=== PATIENT | female | born 1945 | race African-American/Black ===

== ENCOUNTER → 2016-11-02 | Day surgery (SDC) | payer MEDICARE ==
[~2016-11-02] MED LIST: ATROPINE SULFATE 1% OPHT SOLN 2 ML BTL ONE; DEXAMETHASONE SOD PHOS 4 MG/ML VIAL ONE; EPINEPHrine HCL (1:1000) 1 MG/ML VIAL ONE; FLURBIPROFEN 0.03% OPHT SOLN 2.5 ML BTL ONE; HYALURONIDASE/LIDOCAINE/BUPIVACAINE 11 ML SYR TL ONE; HYDR-2768 PO; LACTATED RINGER'S 1000 ML INJ 1,000 ML ONE; NEOMYCIN/POLYMYXIN/DEXAMETHASONE OPTH OINT 3.5 GM TUBE ONE; PHENYLEPHRINE HCL 2.5 % OPTH SOLN 15 ML BTL ONE; PRED1%O OD; PROPOFOL 100 MG/10 ML INJ IV ONE; SODIUM CHLORIDE 0.9% INJ 10 ML ONE; TETRACAINE 0.5% OPTH SOLN 4 ML BTL ONE; TROPICAMIDE 1% OPHT SOLN 15 ML BTL ONE; ceFAZolin INJ 1,000 MG VIAL ONE
--- NOTE | 2016-11-06 10:25 | TN ---
cc: JULIO CESAR HOPSON MD DATE OF SURGERY: 11/02/2016 PREOPERATIVE DIAGNOSIS: Previous macular hole, right eye. POSTOPERATIVE DIAGNOSIS: Previous macular hole, right eye. OPERATION: Pars plana vitrectomy, silicone oil removal, right eye. ANESTHESIA: MAC. SURGEON: Dr. Hopson. COMPLICATIONS: None. PROCEDURE: After informed consent was obtained, the patient brought to the operating room, placed, under brief anesthesia of propofol, prepped and draped in the usual sterile fashion. A wire eyelid speculum was placed in the patient's right eye. 23 gauge vitrectomy cannulas were then placed, one lower temporal, supratemporal and supranasal quadrants 3 mm posterior to the corneal scleral limbus. Infusion cannula was placed lower temporally. The patient had a previous vitrectomy with some of the residual vitreous, at the vitreous space was excised using the vitreous cutter. Posteriorly either the internal limiting membrane or an epiretinal membrane was stained with ICG dye over the surface of the macula. This was then carefully peeled from around the macula hole. Careful indirect ophthalmoscopy with scleral depression was then performed. No peripheral breaks were noted. A complete air-fluid was then performed. The silicone oil gas then used to fill the vitreous cavity. The three vitrectomy cannulas were then removed. Each site was closed with interrupted 7-0 Vicryl suture. Subconjunctival injections of Dexamethasone and Ancef were placed. Atropine drops. Maxitrol ointment and patch and shield were then applied. The patient tolerated the procedure well. There were no complications. She will followup tomorrow in our [facility] office. Julio Cesar Hopson MD TAB/JAC /9:16 AM /10:19 AM
== END | disposition home or self-care (01) ==
LOC: ESDC 11:41
PROVIDERS: ATTEND Ophthalmology Retina Specialist
DX: H35.341 Macular cyst, hole, or pseudohole, right eye (principal)
CPT/HCPCS: 00145; 67036; J0171; J0690; J1100; J7120

== ENCOUNTER 2017-10-24 00:48 | Emergency (ER) | payer MEDICARE ==
[~2017-10-24] VITALS: Ht 172.7 cm; Wt 100.0 kg
[~2017-10-24 00:48] MED LIST changes: -ATROPINE SULFATE 1% OPHT SOLN 2 ML BTL ONE; -DEXAMETHASONE SOD PHOS 4 MG/ML VIAL ONE; -EPINEPHrine HCL (1:1000) 1 MG/ML VIAL ONE; -FLURBIPROFEN 0.03% OPHT SOLN 2.5 ML BTL ONE; -HYALURONIDASE/LIDOCAINE/BUPIVACAINE 11 ML SYR TL ONE; -LACTATED RINGER'S 1000 ML INJ 1,000 ML ONE; -NEOMYCIN/POLYMYXIN/DEXAMETHASONE OPTH OINT 3.5 GM TUBE ONE; -PHENYLEPHRINE HCL 2.5 % OPTH SOLN 15 ML BTL ONE; -PROPOFOL 100 MG/10 ML INJ IV ONE; -SODIUM CHLORIDE 0.9% INJ 10 ML ONE; -TETRACAINE 0.5% OPTH SOLN 4 ML BTL ONE; -TROPICAMIDE 1% OPHT SOLN 15 ML BTL ONE; -ceFAZolin INJ 1,000 MG VIAL ONE
[2017-10-24 00:50] VITALS: BP 177/84; PULSE 79; RESP 16; TEMP 98.5; O2SAT 99
[2017-10-24] MEDS ORDERED: HYDR25TA5 PO (01:08)
[2017-10-24] MEDS ORDERED: METO100T PO (01:08)
[2017-10-24] MEDS ORDERED: CALC600T PO (01:08)
--- NOTE | 2017-10-24 01:32 | PD ---
HPI Chief Complaint: Rectal bleeding Time Seen by Provider: 01:14 Travel History International Travel<30 days: No Contact w/Intl Traveler<30days: No Traveled to known affect area: No History of Present Illness HPI 72yo F with PMH of HTN here with c/o rectal bleeding today. Said pt had a bowel movement 30 minutes prior to seeing small red blood in her panties. She then wipe her rectum and had some bright red blood. Pt said her stool was light brown. She denies any fever, chest pain, sob, n/v, abdominal pain, anticoagulation. Pt had recent colonoscopy 07/2017 that showed internal hemorrhoids and external hemorrhoids on exam. Had polypectomy and biopsy was benign. PFSH Past Medical History Cancer: No Diminished Hearing: No Glaucoma: No Hepatitis: No Hiatal Hernia: No Hypertension: Yes Medical other: Yes (MACULAR HOLE RIGHT RETINA) Immunizations Current: Yes Thyroid Disease: No ?: Not Menopausal: Yes : 1 Para: 1 Miscarriage: 0 : 0 Past Surgical History Abdominal Surgery: Yes (cone biopsy 10 yrs ago) Eye Surgery: Yes (VITRECTOMY RIGHT EYE) Pacemaker: No Social History Alcohol Use: No Tobacco Use: No Substance Use: No Allergies-Medications (Allergen,Severity, Reaction): Coded Allergies: lisinopril (Verified Allergy, Severe, Nausea/Vomiting, 10/24/17) aspirin (Unverified Adverse Reaction, Mild, GI UPSET, 10/24/17) STATES THAT COATED ASPIRIN IS FINE Reported Meds & Prescriptions Reported Meds & Active Scripts Active Reported Calcium/Vitamin D (Calcium Carbonate-Vitamin D) 600-400 Mg-Unit Tab 1 Tab PO BID Hydrochlorothiazide 25 Mg Tab 25 Mg PO DAILY Metoprolol Tartrate 100 Mg Tab 100 Mg PO BID Review of Systems Except as stated in HPI: all other systems reviewed are Neg Physical Exam Narrative GENERAL: 72yo F not in distress. SKIN: Focused skin assessment warm/dry. HEAD: Atraumatic. Normocephalic. EYES: Pupils equal and round. No scleral icterus. No injection or drainage. ENT: No nasal bleeding or discharge. Mucous membranes pink and moist. NECK: Trachea midline. No JVD. CARDIOVASCULAR: Regular rate and rhythm. No murmur appreciated. RESPIRATORY: No accessory muscle use. Clear to auscultation. Breath sounds equal bilaterally. GASTROINTESTINAL: Abdomen soft, non-tender, nondistended. No rebound tenderness or guarding. RECTAL: +Small external hemorrhoid. No tenderness to palpation. No stool on rectal exam but there is faint positive blue so it is positive hemaprompt. MUSCULOSKELETAL: No obvious deformities. No clubbing. No cyanosis. No edema. NEUROLOGICAL: Awake and alert. No obvious cranial nerve deficits. Motor grossly within normal limits. Normal speech. PSYCHIATRIC: Appropriate mood and affect; insight and judgment normal. Data Data Last Documented VS Vital Signs Date Time Temp Pulse Resp B/P (MAP) Pulse Ox O2 Delivery O2 Flow Rate FiO2 10/24/17 01:08 16 10/24/17 00:50 98.5 79 177/84 (115) 99 Orders Orders Hemoglobin (Hgb) (10/24/17 01:23) Labs Laboratory Tests Test 10/24/17 01:29 Hemoglobin 11.5 GM/DL [facility] Medical Decision Making Medical Screen Exam Complete: Yes Emergency Medical Condition: Yes Differential Diagnosis Rectal bleeding Narrative Course 72yo well appearing female here with rectal bleed. Pt had recent colonoscopy that showed internal and external hemorrhoids. Pt has no abdominal pain or any other symptoms. Vital signs stable. Hemoglobin is 11.5 today which is not much different from 12.0 in 2014. Pt denies any dizziness, chest pain, sob, n/v, abdominal pain, focal weakness or numbness. Pt has Dr. Romano to follow up with. Return precautions given. [facility] Point of Care Internal Pos. & Neg. Controls: Passed Fecal Specimen Occult Blood: Positive Diagnosis Primary Impression: Rectal bleed Patient Instructions: General Instructions Departure Forms: Tests/Procedures Additional Instructions: Please follow up with your production potter in 1-2 days. Return to the ED if symptoms worsen. Med/Other Pt SpecificInfo: No Change to Meds Disposition: 01 DISCHARGE HOME Condition: Stable Mirian Millan DO Oct 24, 2017 01:32
== END 2017-10-24 02:30 | disposition home or self-care (01) ==
LOC: NEPE 00:48
DX: K62.5 Hemorrhage of anus and rectum (principal); I10 Essential (primary) hypertension
CPT/HCPCS: 85018; 99283